=== PATIENT | female | born 1940 | race Caucasian/White ===

== ENCOUNTER 2020-07-12 08:43 | Outpatient (CLI) | payer MEDICARE ==
[2020-07-12] MEDS ORDERED: Iopamidol 370 76% 100 ML VIAL ONE (17:19)
== END 2020-07-12 08:44 | disposition home or self-care (01) ==
LOC: BURCT 08:43
PROVIDERS: ATTEND Family Medicine
DX: R10.11 Right upper quadrant pain (principal); K86.2 Cyst of pancreas; K76.89 Other specified diseases of liver
CPT/HCPCS: 74177; Q9967

== ENCOUNTER 2020-12-01 12:12 | Emergency (ER) | payer MEDICARE | END 2020-12-01 12:46 | disposition home or self-care (01) | LOC: BURERS 12:12 | DX: K59.00 Constipation, unspecified (principal); E03.9 Hypothyroidism, unspecified; I10 Essential (primary) hypertension; Z79.899 Other long term (current) drug therapy | CPT/HCPCS: 99283 ==

== ENCOUNTER 2020-12-01 21:14 | Emergency (ER) | payer MEDICARE ==
[~2020-12-01 21:14] MED LIST: Iopamidol 370 76% 100 ML VIAL ONE
[2020-12-01 21:47] LABS: #Basophils 0.1 thou/uL (0.0-0.2); #Eosinphils 0.2 thou/uL (0.0-0.7); #Lymphocytes 1.3 thou/uL (1.20-3.40); #Neutrophils 8.5 thou/uL (1.40-6.50); %Basophils 1.1 % (0.0-1.0); %Eosinophils 2.1 % (0.0-10.0); %Lymphocytes 11.8 % (21.0-51.0); %Monocytes 8.8 % (0.0-10.0); %Neutrophils 76.2 % (42.0-75.0); Mean Corpuscular HGB CONC 31.7 g/dL (32.0-36.0); Mean Corpuscular Hemoglobin 28.9 pg (27.0-31.0); Mean Corpuscular Volume 91.1 fL (78.0-98.0); Mean Platelet Volume 6.4 fL (7.4-10.4); Platelet Count 429 thou/uL (130-400); RBC Distribution Width 13.3 % (11.5-14.5); Red Blood Cell (RBC) Count 4.51 mill/uL (4.20-5.40); White Blood Cell (WBC) Count 11.2 thou/uL (4.8-10.8)
[2020-12-01 22:02] LABS: ALT (SGPT) 21 U/L (8-55); AST (SGOT) 21 U/L (5-34); Alkaline Phosphatase 85 U/L (40-110); Anion Gap 18 mmol/L (10-20); BUN (Urea Nitrogen) 13 mg/dL (9.8-20.1); Bilirubin, Total 0.5 mg/dL (0.2-1.2); Calc. Creatinine Clearance 0 mL/min (70-130); Calcium 9.8 mg/dL (7.8-10.44); Carbon Dioxide 25 mmol/L (23-31); Chloride 98 mmol/L (98-107); Globulin 3.8 g/dL (2.4-3.5); Glucose 120 mg/dL (83-110); Lipase 29 U/L (8-78); Magnesium 2.6 mg/dL (1.6-2.6); Potassium 3.8 mmol/L (3.5-5.1); Protein, Total 7.8 g/dL (5.8-8.1); Sodium 137 mmol/L (136-145)
[2020-12-01 22:48] LABS: Bilirubin Negative (Negative); Blood, Urine Negative (Negative); Clarity Clear (Clear); Glucose, Urine (Dipstick) Negative (Negative); Ketone, Urine Negative (Negative); Leukocyte Negative (Negative); Nitrite Negative (Negative); Protein, Urine (Dipstick) Negative (Neg-Trace); Urobilinogen 0.2 mg/dL (Less than 2)
[2020-12-01] MEDS ORDERED: Fleet Enema 133 ML BOT ONE (22:53)
== END 2020-12-02 00:50 | disposition home or self-care (01) ==
LOC: BURERS 21:14
DX: K56.41 Fecal impaction (principal); E03.9 Hypothyroidism, unspecified; I10 Essential (primary) hypertension; Z79.899 Other long term (current) drug therapy
CPT/HCPCS: 74177; 80053; 81003; 83605; 83690; 83735; 84443; 84484; 85025; Q9967

== ENCOUNTER 2021-06-05 08:59 | Outpatient (CLI) | payer MEDICARE ==
[2021-06-05] MEDS ORDERED: Iopamidol 370 76% 100 ML VIAL FS ONE (09:00)
== END 2021-06-05 09:00 | disposition home or self-care (01) ==
LOC: BURCT 08:59
PROVIDERS: ATTEND Family Medicine
DX: K86.2 Cyst of pancreas (principal); K59.00 Constipation, unspecified; S22.089D Unspecified fracture of T11-T12 vertebra, subsequent encounter for fracture with routine healing
CPT/HCPCS: 74177; Q9967

== ENCOUNTER 2021-09-09 12:01 | Emergency (ER) | payer MEDICARE ==
[2021-09-09] MEDS ORDERED: Iopamidol 370 76% 100 ML VIAL FS ONE (12:02)
[2021-09-09 12:28] LABS: #Basophils 0.1 thou/uL (0.0-0.2); #Eosinphils 0.1 thou/uL (0.0-0.7); #Lymphocytes 1.3 thou/uL (1.20-3.40); #Monocytes 0.7 thou/uL (0.11-0.59); #Neutrophils 7.1 thou/uL (1.40-6.50); %Eosinophils 0.6 % (0.0-10.0); %Lymphocytes 13.7 % (21.0-51.0); %Monocytes 7.9 % (0.0-10.0); %Neutrophils 76.9 % (42.0-75.0); Hemoglobin 13.8 g/dL (12.0-16.0); Mean Corpuscular HGB CONC 32.4 g/dL (32.0-36.0); Mean Corpuscular Hemoglobin 29.7 pg (27.0-31.0); Mean Corpuscular Volume 91.6 fL (78.0-98.0); Mean Platelet Volume 8.3 fL (7.4-10.4); Platelet Count 281 thou/uL (130-400); RBC Distribution Width 13.5 % (11.5-14.5); Red Blood Cell (RBC) Count 4.64 mill/uL (4.20-5.40); White Blood Cell (WBC) Count 9.2 thou/uL (4.8-10.8)
[2021-09-09] MEDS ORDERED: Morphine 4 MG/ML VIAL ONE (12:36)
[2021-09-09] MEDS ORDERED: Ondansetron PF 4 MG/2 ML Vial ONE (12:36)
[2021-09-09 12:46] LABS: ALT (SGPT) 30 U/L (8-55); AST (SGOT) 26 U/L (5-34); Albumin 4.3 g/dL (3.4-4.8); Alkaline Phosphatase 46 U/L (40-110); Anion Gap 17 mmol/L (10-20); BUN (Urea Nitrogen) 26 mg/dL (9.8-20.1); Bilirubin, Total 0.7 mg/dL (0.2-1.2); Calc. Creatinine Clearance 0 mL/min (70-130); Calcium 9.6 mg/dL (7.8-10.44); Carbon Dioxide 24 mmol/L (23-31); Chloride 102 mmol/L (98-107); Globulin 3.2 g/dL (2.4-3.5); Glucose 157 mg/dL (83-110); Lipase 77 U/L (8-78); Potassium 4.2 mmol/L (3.5-5.1); Protein, Total 7.5 g/dL (5.8-8.1); Sodium 139 mmol/L (136-145)
[2021-09-09 13:36] LABS: Bilirubin Negative (Negative); Blood, Urine Trace (Negative); Clarity Clear (Clear); Glucose, Urine (Dipstick) Negative (Negative); Ketone, Urine Negative (Negative); Leukocyte Negative (Negative); Nitrite Negative (Negative); Protein, Urine (Dipstick) Negative (Neg-Trace); Urobilinogen 0.2 mg/dL (Less than 2); pH, Urine 6.5 (5.0-9.0)
[2021-09-09 13:48] LABS: Bacteria/HPF Rare-Few HPF (None Seen); RBC/HPF 0-3 HPF (0-3); Squamous Epithelial 0-3 HPF (0-3); WBC/HPF 0-3 HPF (0-3)
[2021-09-09] MEDS ORDERED: Aspirin 325 MG TAB ONE (14:38)
[2021-09-09] MEDS ORDERED: Nitroglycerin 0.4 MG TAB 1 EACH ONE (14:38)
[2021-09-09] MEDS ORDERED: Aspirin Chewable 81 MG TAB ONE ×2 (14:38)
[2021-09-09 16:48] LABS: Troponin I Less than 0.010 ng/mL (< 0.028)
== END 2021-09-09 19:55 | disposition short-term general hospital (02) ==
LOC: BURERS 12:01
DX: R07.2 Precordial pain (principal); R00.0 Tachycardia, unspecified; E03.9 Hypothyroidism, unspecified; I10 Essential (primary) hypertension; Z20.822 Contact with and (suspected) exposure to COVID-19; Z87.19 Personal history of other diseases of the digestive system; Z85.3 Personal history of malignant neoplasm of breast; Z79.899 Other long term (current) drug therapy
CPT/HCPCS: 71275; 74174; 80053; 81003; 81015; 83690; 84484; 85025; 93005; 96374; 96375; J2270; J2405; Q9967; U0003; U0005